=== PATIENT | female | born 1985 | race Caucasian/White ===

== ENCOUNTER → 2016-09-11 | Outpatient (CLI) | payer BC ==
[~2016-09-11] MED LIST: ACET50TA PO; IBUP60TA PO; VITAPRTA PO
[2016-09-11 17:31] LABS: BASO % 0.4 % (0.0-1.0); EOS # 0.1 K/mm3 (0.0-0.50); EOS % 1.7 % (0.0-3.0); LARGE UNSTAINED CELL # 0.2 K/mm3 (0.0-0.4); LARGE UNSTAINED CELL % 2.1 % (0.0-4.0); LYMPH # 2.3 K/mm3 (1.5-4.5); LYMPH % 29.6 % (24.0-44.0); MEAN CORPUSCULAR HEMOGLOBIN 32.7 pg (27.0-33.0); MEAN CORPUSCULAR HGB CONC 33.8 g/dl (32.0-36.5); MEAN CORPUSCULAR VOLUME 96.9 fl (80.0-96.0); MONO # 0.4 K/mm3 (0.0-0.8); MONO % 5.6 % (0.0-5.0); NEUTROPHILS # 4.8 K/mm3 (1.8-7.7); NEUTROPHILS % 60.6 % (36.0-66.0); PLATELET COUNT, AUTOMATED 209 k/mm3 (150-450); RED CELL DISTRIBUTION WIDTH 12.6 % (11.5-14.5); WHITE BLOOD COUNT 7.9 K/mm3 (4.0-10.0)
[2016-09-14 11:05] LABS: HBsAg Prenatal NEGATIVE (NEGATIVE)
== END ==
LOC: M WUC 12:33
PROVIDERS: ATTEND Specialist
DX: Z34.81 Encounter for supervision of other normal pregnancy, first trimester (principal); Z36 Encounter for antenatal screening of mother; Z3A.00 Weeks of gestation of pregnancy not specified

== ENCOUNTER → 2016-11-30 | Outpatient (CLI) | payer BC ==
--- NOTE | 2016-11-30 17:42 | REP ---
OB ULTRASOUND: Real-time sonographic evaluation of the gravid uterus is performed utilizing transabdominal technique. There is a single living intrauterine gestation. The estimated gestational age is 19 weeks 0 days based on LMP with EDC 04/26/2017. BPD 44 mm = 19 weeks 1 day. HC 165 = 19 weeks 1 day. AC 140 mm = 19 weeks 3 days. Femur length 29 mm = 18 weeks 5 days, at the 54th percentile. HC/AC ratio 1.16 within normal range. Estimated weight 279 grams of 58th percentile. Cervix is closed measures 3.7 cm in length. heart rate 147 beats per minute. SEEN/GROSSLY UNREMARKABLE Lateral ventricles Yes Posterior fossa Yes Upper lip Yes Four-chamber heart No LVOT No RVOT No Stomach Yes Cord insertion Yes Three vessel cord Yes Kidneys Yes Bladder Yes Spine Yes position: Breach Placenta: Posterior and grade 0 with no previa or abruption. Amniotic fluid: Within normal limits. Signed by Azeem Tiwari MD 12/01/2016 04:37 P
== END ==
LOC: M SMT 14:56
PROVIDERS: ATTEND Obstetrics & Gynecology
DX: Z34.82 Encounter for supervision of other normal pregnancy, second trimester (principal); Z36 Encounter for antenatal screening of mother; Z3A.19 19 weeks gestation of pregnancy

== ENCOUNTER → 2016-12-28 | Outpatient (CLI) | payer BC ==
--- NOTE | 2016-12-28 17:07 | REP ---
Obstetric ultrasound for anatomy follow-up: The prior study dated 11/30/2016 did not optimally demonstrate the four-chamber view of the heart or cardiac right and left ventricular outflow tracts. The study today is for follow-up of these structures. There is a single intrauterine gestation in a vertex presentation. There is motion and cardiac activity. The heart rate is 163 beats per minute. The placenta is posterior without previa or abruptio and grade zero maturity. The amniotic fluid volume subjectively is normal. Cervix measures 5.2 cm length. The maternal adnexa and cul-de-sac are unremarkable. By the ultrasound today gestational age is 23 weeks 3 days with an RAUL of 04/23/2017. By the first ultrasound gestational age is 23 weeks 0 days. weight is 568 grams (1 pound, 4 ounces). This is the 50th percentile for 23 weeks 0 days. On the study today the four-chamber view of the heart and the cardiac right and left ventricular outflow tracts are optimally demonstrated and unremarkable. The remainder of the anatomy previously was unremarkable. There are no anomalies. Signed by Azeem Buchanan MD 12/28/2016 04:56 P
== END ==
LOC: M RAD 16:21
PROVIDERS: ATTEND Obstetrics & Gynecology
DX: Z36 Encounter for antenatal screening of mother (principal); Z3A.22 22 weeks gestation of pregnancy

== ENCOUNTER → 2017-01-14 | Outpatient (CLI) | payer BC ==
[2017-01-14 17:20] LABS: MEAN CORPUSCULAR HEMOGLOBIN 34.1 pg (27.0-33.0); MEAN CORPUSCULAR HGB CONC 33.7 g/dl (32.0-36.5); MEAN CORPUSCULAR VOLUME 101.2 fl (80.0-96.0); WHITE BLOOD COUNT 8.9 10^3/uL (4.0-10.0)
== END ==
LOC: M WUC 11:21
PROVIDERS: ATTEND Obstetrics & Gynecology
DX: Z34.82 Encounter for supervision of other normal pregnancy, second trimester (principal)

== ENCOUNTER → 2017-03-29 | Outpatient (REF) | payer BC | LOC: M LAB REF 17:15 | PROVIDERS: ATTEND Advanced Practice Midwife | DX: Z34.83 Encounter for supervision of other normal pregnancy, third trimester (principal) ==

== ENCOUNTER 2017-04-17 17:20 | Inpatient (IN) | payer BC ==
[2017-04-17] MEDS ORDERED: OXYTOCIN 30 UNITS IN 0.9% NaCl 500ML IV BAG (J2590) As Ordered (17:44)
[2017-04-17 17:55] LABS: HEMATOCRIT 36.7 % (36.0-47.0); HEMOGLOBIN 12.9 g/dl (12.0-16.0); MEAN CORPUSCULAR HEMOGLOBIN 33.7 pg (27.0-33.0); MEAN CORPUSCULAR HGB CONC 35.1 g/dl (32.0-36.5); MEAN CORPUSCULAR VOLUME 95.8 fl (80.0-96.0); PLATELET COUNT, AUTOMATED 228 10^3/uL (150-450); RED BLOOD COUNT 3.83 10^6/uL (4.00-5.40); RED CELL DISTRIBUTION WIDTH 12.8 % (11.5-14.5); WHITE BLOOD COUNT 12.4 10^3/uL (4.0-10.0)
[2017-04-17] MEDS ORDERED: DOCUSATE SODIUM 100 MG CAP PO (19:00)
[2017-04-17] MEDS ORDERED: METHYLERGONOVINE MALEATE 0.2 MG TAB PO (19:00)
[2017-04-17] MEDS ORDERED: RHOGAM 300 MCG (1500 IU) INJ (J2790) IM (19:00)
[2017-04-17] MEDS ORDERED: DIBUCAINE 1% OINTMENT 30GM TOP (19:00)
[2017-04-17] MEDS ORDERED: MEASLES,MUMPS,RUBELLA VACCINE INJ (MMR-II) (90707) SC (19:00)
[2017-04-17] MEDS: IBUPROFEN 800 MG TAB PO (19:10)
[2017-04-17] MEDS: OXYTOCIN DRIP 30 UNITS in APPROPRIATE DILUENT 1 EA IV (21:43)
[2017-04-17] MEDS: ACETAMINOPHEN 500 MG TAB PO (22:47)
[2017-04-18] MEDS: IBUPROFEN 800 MG TAB PO ×2 (05:49→15:05)
[2017-04-18] MEDS: PRENATAL VITAMINS CHEWABLE TABLET PO (09:05)
[2017-04-19] MEDS: IBUPROFEN 800 MG TAB PO (05:35)
[2017-04-19] MEDS: PRENATAL VITAMINS CHEWABLE TABLET PO (09:33)
== END 2017-04-19 10:10 | disposition home or self-care (01) | DRG 560 ==
LOC: M LDO 17:20 → M LDI 17:43 → M OBS 20:50
PROVIDERS: Advanced Practice Midwife
PROC: 10E0XZZ Delivery of Products of Conception, External Approach (ICD-10-PCS; principal; 2017-04-17)
PROC: 10907ZC Drainage of Amniotic Fluid, Therapeutic from Products of Conception, Via Natural or Artificial Opening (ICD-10-PCS; 2017-04-17)
DX: O80 Encounter for full-term uncomplicated delivery (principal); Z37.0 Single live birth; Z3A.38 38 weeks gestation of pregnancy

== ENCOUNTER → 2018-07-22 | Outpatient (CLI) | payer OTHER ==
[~2018-07-22] MED LIST changes: -ACET50TA PO; +ADVI200C5 PO; +IBUP600T42 PO; -IBUP60TA PO; +MAPA500T2 PO
[2018-07-22 17:58] LABS: HEMATOCRIT 40.2 % (36.0-47.0); HEMOGLOBIN 13.4 g/dl (12.0-15.5); MEAN CORPUSCULAR HEMOGLOBIN 32.6 pg (27.0-33.0); MEAN CORPUSCULAR HGB CONC 33.3 g/dl (32.0-36.5); MEAN CORPUSCULAR VOLUME 97.8 fl (80.0-96.0); PLATELET COUNT, AUTOMATED 243 10^3/uL (150-450); RED BLOOD COUNT 4.11 10^6/uL (4.00-5.40); WHITE BLOOD COUNT 10.8 10^3/uL (4.0-10.0)
[2018-07-22 18:34] LABS: FREE T4 0.89 NG/DL (0.76-1.46); THYROID STIMULATING HORMONE 2.08 uIU/ML (0.358-3.740)
== END ==
LOC: M SMT 14:53
PROVIDERS: ATTEND Advanced Practice Midwife
DX: N92.0 Excessive and frequent menstruation with regular cycle (principal)
CPT/HCPCS: 36415; 84439; 84443; 85027; 87624; G0123

== ENCOUNTER → 2018-07-27 | Outpatient (CLI) | payer OTHER ==
--- NOTE | 2018-07-27 19:58 | REP ---
Pelvic ultrasound including transabdominal, endovaginal and Doppler ultrasound assessment for irregular and excessive menses for 7 months: The the uterus is retroverted and normal size measuring 8.5 x 4.7 x 6.7 cm. The endometrium is not thickened measuring up to 9.6 mm. Right ovary: The right ovary measures 2.8 x 1.5 x 2.0 cm and is normal size. There is no dominant mass or cyst. There is vascular flow with the Doppler resistive index of the parenchymal arteries measuring 0.55. Left ovary: There is a hemorrhagic cyst measuring 2.0-0.1 by 2.0 cm. Including the cyst the left ovary measures 3 x 3 by 2.4 x 2.0 cm and is normal size. There is vascular flow with the Doppler resistive index of the parenchymal arteries measuring 0.63. There is no pelvic free fluid. Impression: Retroverted uterus. Hemorrhagic left ovarian cyst. Otherwise, negative pelvic ultrasound Electronically Signed by Azeem Buchanan MD 07/27/2018 07:48 P
== END ==
LOC: M RAD 17:36
PROVIDERS: ATTEND Advanced Practice Midwife
DX: N85.4 Malposition of uterus (principal); N83.202 Unspecified ovarian cyst, left side